=== PATIENT | female | born 1990 | race Caucasian/White ===

== ENCOUNTER → 2016-04-21 | Outpatient (CLI) | payer MEDICAID ==
[2016-04-21 16:59] LABS: HEMOGLOBIN 11.5 g/dL (12.2-16.2); LYMPH # 1.7 K/mm3 (0.7-4.5); LYMPH % 18.7 % (10-50.0)
[2016-04-21 17:41] LABS: AMPHETAMINES/METAMPHETAMINES NEGATIVE ng/mL (<1000)
[2016-04-22 00:10] LABS: ABO BLOOD TYPE A; RH BLOOD TYPE NEGATIVE
[2016-04-23 08:36] LABS: HBsAg Screen Negative (Negative); Rapid Plasma Reagin, Quant Non Reactive (NonRea<1:1)
[2016-04-24 04:37] LABS: Rubella Antibodies, IgG <0.90 index (Immune >0.99)
[2016-04-24 08:38] LABS: HIV Screen 4th Generation wRfx Non Reactive (Non Reactive)
[2016-04-26 11:49] LABS: Gest. Age on Collection Date 18; Gestat. Age Based On 18; Maternal Age At EDD 26.9
[2016-04-26 11:50] LABS: AFP Value 30.6; DIA MoM 4.93; DIA Value 779.85; DSR (Second Trimester) 1 IN 161; OSBR Risk 1 IN 1 IN 10000; hCG Value 24910; uE3 MoM 0.81; uE3 Value 1.07
== END ==
LOC: LAB 16:29
PROVIDERS: Obstetrics & Gynecology
DX: Z36 Encounter for antenatal screening of mother (principal); Z04.8 Encounter for examination and observation for other specified reasons; Z34.80 Encounter for supervision of other normal pregnancy, unspecified trimester
CPT/HCPCS: G0432